=== PATIENT | male | born 1975 | race Caucasian/White ===

== ENCOUNTER 2024-01-26 21:56 | Emergency (ER) | payer SELFPAY ==
[2024-01-26 22:07] VITALS: BP 125/81; PULSE 68; RESP 20; TEMP 36.8; O2SAT 98; BMI 29.5
[2024-01-26] MEDS: LIDOCAINE 1% 20ML MDV 20 ML IJ (22:38)
[2024-01-26] MEDS: SULFA/TRIMETHOPRIM 1 TABLET 1 EACH PO (22:44)
[2024-01-26 22:50] VITALS: BP 112/74; PULSE 80; RESP 14; TEMP 36.7; O2SAT 99
--- NOTE | 2024-01-27 04:42 | PC.NURSE ---
received call from spouse who asked that we re-route his antibiotics to [facility]. Re-transmitted to [facility] and stopped transmit to [facility].
--- NOTE | 2024-01-27 15:13 | ED_ITS ---
Discharge Plan Disposition Patient Disposition: Home, Self-Care Prescriptions Prescriptions: New sulfamethoxazole-trimethoprim [Bactrim DS] 800-160 mg tablet 1 tab PO DAILY 14 Days Qty: 14 0RF Referrals Follow up/Referrals: Provider,Referral, [Primary Care Provider] - See instructions Activity Restrictions/Add. Instructions Additional Instructions/Restrictions: You were evaluated in the emergency department today. Keep your wound clean and dry. Do not submerge under any water. Apply warm compresses as needed. [employer] supervisor the prescription for antibiotics and take the full course as prescribed. Clinical Impressions Clinical Impression: Abscess of chest wall Instructions Patient Instructions: DI for Skin Abscess, DI for Incision and Drainage Discharge ED Provider: Mery [facility]cantara General Adult HPI General Chief complaint: Skin/Abscess/Foreign Body Stated complaint: spider bite on chest Time Seen by Provider: 01/26/24 21:59 Mode of Arrival: Ambulatory Source of Information: Patient Limitations: No Limitations Description of Symptoms (Recalled from ER Triage Doc. by RN): pt reports working wednesday and noted bump to left chest when he got home. pt reports the bump has gotten bigger and more pqainful since wednesday. pt believes he was bitten by spider. bump i red and warm to the touch History of Present Illness HPI narrative: This patient is a 48-year-old male who denies significant past medical history presenting to the emergency department for evaluation with concern for a lesion on his chest.? He states that he thinks that it is a spider bite.? He notes that his has a history of MRSA and they were concerned that this could be an infection.? He notes that it has been present for several days now.? He denies any fevers, chills, or other systemic symptoms.? No other concerns noted at this time. Related Data Previous Rx's Medication Instructions Recorded sulfamethoxazole 800 1 tab PO DAILY 14 days #14 tabs 01/26/24 mg-trimethoprim 160 mg tablet (Bactrim DS) Allergies Allergy/AdvReac Type Severity Reaction Status Date / Time No Known Allergies Allergy Verified 01/26/24 22:28 [facility] Disclaimer: The information contained in this section may have been updated after the patient was seen, as this information can be updated by other users. Social History Smoking Status: Current every day smoker alcohol intake: never current occupational status: employed Travel in the last 8 weeks: None ROS Obtained: Yes All systems reviewed & no additional complaints except as documented Physical Exam General General appearance: alert and in no apparent distress Head Head exam: atraumatic and normocephalic Eye Eye exam: Present normal appearance, PERRL and EOMI ENT ENT exam: Present normal exam, normal oropharynx, mucous membranes moist and normal external ear exam Neck Neck exam: Present normal inspection, full ROM and trachea midline; Absent tenderness Chest Chest inspection: Present symmetric chest wall rise; Absent tenderness Expanded Chest Exam Male Torso: 2 1. Superficial fluctuant abscess without significant surrounding erythema, warmth, or induration Respiratory Respiratory exam: Present normal lung sounds bilaterally; Absent respiratory distress, wheezes, stridor or accessory muscle use Cardiovascular Cardiovascular exam: Present regular rate and normal rhythm Abdominal Exam Abdominal exam: Present soft; Absent distention, tenderness or guarding Extremities Exam Extremities exam: Present normal inspection, full ROM and normal capillary refill; Absent tenderness or edema Back Exam Back exam: Present normal inspection and full ROM; Absent tenderness Neurological Exam Neurological exam: Present alert, oriented X3, CN II-XII intact and normal gait; Absent motor sensory deficit Psychiatric Psychiatric exam: Present normal affect and normal mood Skin Skin exam: Present warm and dry Medical Decision Making Medical Records Medical records reviewed: Yes I reviewed the patient's medical records. Emir Inquiry Pt receiving controlled substance: No Vital Signs: 01/26/24 22:07 01/26/24 22:50 Temperature 98.3 F 98.1 F Temperature Source Oral Oral Pulse Rate 80 Pulse Rate [Left Radial] 68 Respiratory Rate 20 14 Blood Pressure 112/74 Blood Pressure [Right Arm] 125/81 Blood Pressure Mean [Right Arm] 95 Blood Pressure Source Automatic Cuff Blood Pressure Source [Right Arm] Automatic Cuff Blood Pressure Position Sitting Blood Pressure Position [Right Arm] Sitting 02 Sat by Pulse Oximetry 98 Oxygen Delivery Method Room Air Room Air Lab Data Lab results reviewed: Yes I reviewed the patient's lab results. Orders (Tests/Meds): ED MEDICATIONS Discontinued Medications Generic Name Dose Route Start Last Admin Trade Name Freq PRN Reason Stop Dose Admin Lidocaine HCl 20 ml 01/26/24 22:30 01/26/24 22:38 Lidocaine 1% 20ml Mdv IJ 01/26/24 22:31 20 ml ONCE ONE Administration Trimethoprim/Sulfamethoxazole 1 each 01/26/24 22:30 01/26/24 22:44 Sulfa/Trimethoprim 1 Tablet PO 01/26/24 22:31 1 each ONCE ONE Administration Trimethoprim/Sulfamethoxazole 1 each 01/27/24 01:12 01/27/24 01:18 Sulfa/Trimethoprim 1 Tablet PO 01/27/24 01:13 Not Given ONCE ONE ORDERS Category Date Time Status Wound Culture and Gram Stain Stat Micro 01/26/24 22:52 Ordered Medical Decision Narrative: In summary, this patient is a 48-year-old male presenting to the Emergency Department for evaluation of abscess to his chest. Differential diagnoses considered include but are not limited to abscess, cellulitis, furuncle, carbuncle. Ruling out the most morbid conditions drove assessment. On exam, the patient is nontoxic-appearing with reassuring vital signs.? He has a superficial abscess on his chest wall with no significant surrounding erythema, warmth, or other concerns.? No systemic symptoms noted.? At this time, I do not feel the labs or imaging are indicated. Patient was consented for incision and drainage and gave consent after risks versus benefit were obtained.? Patient was prepped with 5 cc of injected lidocaine.? Small stab wound was made in the center of the abscess with an 11 blade with return of purulent drainage.? Area was then irrigated.? Patient tolerated this well with no complications. ?Wound was left open with sterile dressing applied.? At this time, it is felt that the patient is appropriate for discharge home Patient was given prescription for Bactrim, instructions for close patient follow-up, strict return precautions, and he was discharged in stable condition after all questions were answered. Procedures Risk/Benefits of Procedure(s) Were Explained: Yes Abscess I/D Site: chest Side (if applicable): left Local Anesthetic: lidocaine 1% Technique: incised with #11 blade Irrigation: Yes Packing used?: plain Critical Care Critical Care Time Critical Care Time: No
== END 2024-01-26 22:50 | disposition home or self-care (01) ==
LOC: ER 22:31
PROVIDERS: Emergency Provider Emergency Medicine
DX: L02.213 Cutaneous abscess of chest wall (principal); F17.200 Nicotine dependence, unspecified, uncomplicated
CPT/HCPCS: 10060; 87070; 87205; 99283